=== PATIENT | female | born 1960 | race Caucasian/White ===

== ENCOUNTER → 2016-09-03 | Day surgery (SDC) | payer MEDICARE, OTHER ==
[~2016-09-03] MED LIST: ACETAMINOPHEN PO; ACETAMINOPHEN650 M4 PO; ALBUTEROL20 ml INH; BACLOFEN10 MG PO; BACTRIM DS TABL1 TA1 PO; FLEXERIL10 MG; FLEXERIL10 MG PO; FLOVENT HFA INH; HALDOL PO; HUMIBID-LA600 MG PO; HYDROCODONE-APA1 T51; MELOXICAM15 MG PO; MIRALAX255 GM PO; MOBIC15 MG PO; NICOTINE P1 PATCH .2 TD; OXYCODON HCL-AP1 TA2 PO; OXYCODONE-APAP1 EAC5 PO; PERCOCET 10/31 UDTA1 PO; PREDNISONE10 MG PO; PROAIR HFA8.5 GM INH; QUETIAPINE FUM100 MG PO; QVAR7.3 G1 INH; SEROQUEL PO; SEROQUEL300 M1 PO; SEROQUEL300 MG PO; TOPAMAX200 MG PO; TRAZODONE HCL100 MG PO; VALIUM10 MG PO; VIBRAMYCIN100 M1 PO; XARELTO10 MG PO; ZANTAC300 MG PO; ZYRTEC PO; ZYRTEC10 M2 PO
--- NOTE | ~2016-09-03 | OR ---
Unit #: [id number] #: [id number] Patient: OSITO GILLIAM [id number] [address] [address] [id number] O MR#: [id number] NAME: OSITO GILLIAM ROOM: Date of Procedure: 09/03/2016 Admission Date: 09/03/2016 Surgeon: Randell Bonilla M.D. : 1960 Attending Physician: Randell Bonilla M.D. Primary Care Physician: Janee Fleming A.P.R.N. OPERATIVE REPORT PROCEDURE PERFORMED Colonoscopy to cecum. INDICATIONS FOR PROCEDURE A 56-year-old, brother with colon cancer, undergoing colonoscopy for evaluation for the first time. MEDICATIONS Monitored anesthesia. POSTOPERATIVE FINDINGS Normal exam to cecum. Good prep. PLAN Repeat colonoscopy in 5 years. DESCRIPTION OF PROCEDURE The patient was explained of the procedure, risks, and benefits along with risks and benefits of anesthesia. She was brought to the endoscopy room. Propofol anesthesia was given. Rectal exam was done, which was normal. Colonoscope was lubricated, passed up the rectum, advanced under direct vision all the way to cecum. Cecum was identified by ileocecal valve and appendiceal orifice. No polyps, masses, or colitis was seen. Mucosa was normal and healthy. I retroflexed in the rectum, small hemorrhoids seen. Scope was gently pulled out. She tolerated it well. No major complications were seen. Dictated by... Simeon Malik/den TD: 09/03/2016 22:44 JOB #: [id number] Unit #: [id number] #: [id number] Patient: OSITO GILLIAM OPERATIVE REPORT Page 1 of 1 X Randell Bonilla MD X PROCEDURE OPERATIVE NOTE
== END | disposition home or self-care (01) ==
LOC: COPS 09:32
PROVIDERS: Internal Medicine
PROC: 0DJD8ZZ Inspection of Lower Intestinal Tract, Via Natural or Artificial Opening Endoscopic (ICD-10-PCS; principal; 2016-09-03 12:00)
DX: Z12.11 Encounter for screening for malignant neoplasm of colon (principal); Z80.0 Family history of malignant neoplasm of digestive organs; K64.9 Unspecified hemorrhoids; K21.9 Gastro-esophageal reflux disease without esophagitis; J44.9 Chronic obstructive pulmonary disease, unspecified; G89.29 Other chronic pain; M54.9 Dorsalgia, unspecified; Z79.899 Other long term (current) drug therapy; F17.200 Nicotine dependence, unspecified, uncomplicated; Z87.01 Personal history of pneumonia (recurrent); Z98.51 Tubal ligation status; Z98.890 Other specified postprocedural states; Z88.0 Allergy status to penicillin; Z91.048 Other nonmedicinal substance allergy status
CPT/HCPCS: J2250